=== PATIENT | male | born 1955 | race Caucasian/White ===

== ENCOUNTER 2021-01-23 06:52 | Day surgery (SDC) | payer MEDICARE, OTHER ==
[2021-01-16 12:56] LABS: PRE OP PROTIME 10.3 SECONDS (9.0-12.0)
[2021-01-16 12:57] LABS: ALKALINE PHOSPHATASE 93 IU/L (46-116); BASOPHILS # (AUTO) 0.1 X10'3 (0-0.2); BLOOD UREA NITROGEN 15 MG/DL (7-18); BUN/CREATININE RATIO 20.8 (5.4-32.0); CALCIUM 8.8 MG/DL (8.5-10.1); CHLORIDE 106 MMOL/L (99-107); CREATININE 0.72 MG/DL (0.60-1.10); EOSINOPHILS # (AUTO) 0.1 X10'3 (0-0.9); EOSINOPHILS % (AUTO) 2.1 % (0-6); LYMPHOCYTES # (AUTO) 2.5 X10'3 (1.1-4.8); LYMPHOCYTES % (AUTO) 37.1 % (21-51); MEAN CORPUSCULAR HEMOGLOBIN 29.4 PG (27.0-31.0); MEAN CORPUSCULAR HGB CONC 34.4 g/dL (33.0-36.5); MEAN CORPUSCULAR VOLUME 85.6 FL (78-98); MONOCYTES # (AUTO) 0.5 X10'3 (0-0.9); MONOCYTES % (AUTO) 6.8 % (2-12); NEUTROPHILS # (AUTO) 3.6 X10'3 (1.8-7.7); PRE OP ALT 35 U/L (30-65); PRE OP ANION GAP 8 (8-16); PRE OP AST 20 U/L (10-37); PRE OP BILIRUB, TOTAL 0.7 MG/DL (0.0-1.0); PRE OP GLUCOSE 150 MG/DL (70-104); PRE OP HEMOGLOBIN 15.8 g/dL (14.0-17.9); PRE OP PLATELET COUNT 223 X10'3 (140-440); PRE OP POTASSIUM 3.9 MMOL/L (3.4-5.1); PRE OP SODIUM 141 MMOL/L (135-145); RED BLOOD COUNT 5.38 X10'6 (4.70-6.10); TOTAL CARBON DIOXIDE 27.1 MMOL/L (24-32); TOTAL PROTEIN 7.9 G/DL (6.4-8.2); eGFR > 90 ML/MIN
[2021-01-23] VITALS (18 sets, daily range): BP systolic 119–177; BP diastolic 62–95
[~2021-01-23] VITALS: Ht 177.8 cm; Wt 100.0 kg
[~2021-01-23 06:52] MED LIST: HYDROcodone/acetaminophen 10/325mg tab PO PRN; HYDROmorphone 1 mg/ml syringe IV PRN; HYDROmorphone inj. 0.5 MG/0.5 ML DISP.SYRIN IV PRN; MULTIVITAMINS; ROPIVAcaine 0.5% (5mg/ml) 30ml vial ONE; acetaminophen 325mg tablet PO ONE; acetaminophen 325mg tablet PO PRN; bisacodyl 10mg suppository rectal RC PRN; ceFAZolin 2gm in dextrose, iso 50 ML IV ONE; celeCOXIB 100mg capsule PO ONE; cloNIDine hcl/PF 100mcg/ml inj ONE; diphenhydrAMINE 25mg capsule PO PRN; epiNEPHrine 1 mg/ml inj ONE; famotidine 20mg tablet PO ONE; gabapentin 300mg capsule PO ONE; ketorolac trometh. 30mg/ml inj. ONE; magnesium hydroxide 30ml (MOM) UD suspension PO PRN; metoclopramide 5 mg/ml inj IV ONE; ondansetron/PF 4mg/2ml inj IV PRN; oxyCODONE SR 10mg (sust. release) tab -2 tabs (20mg) PO ONE; potassium cl 20mEq in 1/2 NS 1,000 ML IV SCH; ringers solution, lacted 1,000 ML IV SCH; tranexamic acid 1gm/0.7% sal. 100 ML IV ONE; tranexamic acid inj. 0 MG in normal saline 100ml IV soln 100 ML IV ONE; vancomycin 1,000mg inj ONE; vancomycin 1,500 MG in NS 300ml IV soln IV ONE
[2021-01-23] MEDS ORDERED: fentaNYL/PF 50MCG/1 ML 2ML syringe ONE (07:06)
[2021-01-23] MEDS ORDERED: MIDAZolam 1 MG/ML 5ML VIAL ONE (07:23)
[2021-01-23] MEDS ORDERED: propofol inj 20 ML IV ONE ×2 (07:23→07:24)
[2021-01-23] MEDS ORDERED: morphine 4 MG/ML inj SYRINge IV PRN (08:00)
[2021-01-23] MEDS ORDERED: morphine 2 MG/ML inj. syringe IV PRN (08:00)
[2021-01-23] MEDS ORDERED: gabapentin 300mg capsule PO SCH (08:00)
[2021-01-23] MEDS ORDERED: labetalol 20mg/4ml (5mg/ml) syringe IV PRN (08:00)
[2021-01-23] MEDS ORDERED: multivitamins, therapeutics tablet PO SCH (08:00)
[2021-01-23] MEDS ORDERED: acetaminophen 1,000mg/100ml IV 100 ML IV PRN (08:00)
[2021-01-23] MEDS ORDERED: ringers solution, lacted 1,000 ML IV SCH (08:00)
[2021-01-23] MEDS ORDERED: ascorbic acid 500mg tablet PO SCH (08:00)
[2021-01-23] MEDS ORDERED: ondansetron/PF 4mg/2ml inj IV PRN (08:00)
[2021-01-23] MEDS ORDERED: hydrALAZINE 20mg/ml inj. IV PRN (08:00)
[2021-01-23] MEDS ORDERED: meperidine/PF 25mg/ml syringe IV PRN ×3 (08:00)
[2021-01-23] MEDS ORDERED: proCHLORperazine 10 MG/2 ml inj IV PRN (08:00)
[2021-01-23] MEDS ORDERED: ePHEDrine 50MG/ML INJ. ONE (08:24)
[2021-01-23] MEDS ORDERED: aspirin 325mg tablet PO SCH (08:30)
--- NOTE | 2021-01-23 08:35 | NUR ---
PT ARRIVED TO VIA BED ACCOMPANIED BY DR LUIS, ANESTHESIA-REPORT GIVEN, PT AWAKE, DENIES PAIN, SPINAL ANESTHESIA GIVEN-SENSATION AT T-9 CURRENTLY, + PULSES TO BLE, SCDS ON, RIGHT HIP-SUM[facility] DRSG IN PLACE-CDI, KNEE IMMOBILIZER TO RIGHT KNEE PRESENT, PIV 18G TO L A/C-LR RUNNING AT 100ML/HR
--- NOTE | 2021-01-23 09:38 | NUR ---
PT DOING WELL, VSS, DENIES PAIN, + PULSES TO BLE, SENSATION NOTED TO BE AT L3 CURRENTLY, DRSG-CDI
--- NOTE | 2021-01-23 11:30 | NUR ---
PT HERE TO EDUCATE REGARDING HOME CARE, PT'S SENSATION HAS RETURNED AND PT IS ABLE TO MOVE FEET, DENIES PAIN VSS.
[2021-01-23] MEDS ORDERED: HYDROcodone/acetaminophen 10/325mg tab PO ONE (11:40)
--- NOTE | 2021-01-23 12:05 | NUR ---
PT DRESSED AND TOLERATED PT WELL, VSS, DID HAVE SOME PAIN-DEMEROL GIVEN EARLIER ALONG WITH A NORCO TO HELP WITH THE RIDE HOME-PAIN DECREASING 5-6/10, EDUCATED TO STAY ON TOP OF PAIN-PT AWARE BUT WANTS TO AVOID PAIN MEDS IF POSSIBLE. EDUCATED REGARDING HOME CARE OF SUMI DRSG-MAY SHOWER AND KEEP IN PLACE FOR 7 DAYS, PT HAS HOME CARE INSTRUCTIONS FROM [facility] ALREADY, GIVEN P.T. HANDOUTS WELL-ALL QUESTIONS ANSWERED. PIV D/CD-CANNULA INTACT, HIP DRSG-CDI, +PULSES BLE, SENSATION FULLY RTN, TAKEN HOME VIA DEANNE CARGO IN W/C WITH ALL BELONGINGS
[2021-01-23] MEDS ORDERED: cefazolin/dext.iso 2gm/100ml 100 ML IV SCH (16:00)
[2021-01-23] MEDS ORDERED: VANCOMYCIN 1,500MG inj. 1,500 MG in normal saline 500ml IV soln 500 ML IV SCH (20:00)
[2021-01-23] MEDS ORDERED: sennosides 8.6mg tablet PO SCH (21:00)
[2021-01-24] MEDS ORDERED: celeCOXIB 100mg capsule PO SCH (20:00)
== END 2021-01-23 12:05 | disposition home or self-care (01) ==
LOC: PAS 06:52
PROVIDERS: ATTEND Orthopaedic Surgery
DX: M16.11 Unilateral primary osteoarthritis, right hip (principal); E66.9 Obesity, unspecified; Z68.31 Body mass index [BMI] 31.0-31.9, adult; Z79.899 Other long term (current) drug therapy; Z79.01 Long term (current) use of anticoagulants; Z20.822 Contact with and (suspected) exposure to COVID-19; Z72.89 Other problems related to lifestyle; Z98.890 Other specified postprocedural states; Z85.46 Personal history of malignant neoplasm of prostate
CPT/HCPCS: 27130; 36415; 72170; 80053; 82948; 85025; 85610; 85730; 86885; 86900; 86901; 87081; 97110; 97116; 97161; C1776; J0171; J0735; J1885; J2175; J2250; J2704; J2765; J3010; J3370; J7040; J7120; U0003; U0005; Z7506; Z7508; Z7512; A7000; J2795

== ENCOUNTER 2021-03-20 07:08 | Day surgery (SDC) | payer MEDICARE, OTHER ==
[2021-03-12 10:26] LABS: BASOPHILS # (AUTO) 0.1 X10'3 (0-0.2); BASOPHILS % (AUTO) 0.9 % (0-1); EOSINOPHILS # (AUTO) 0.2 X10'3 (0-0.9); EOSINOPHILS % (AUTO) 2.1 % (0-6); LYMPHOCYTES # (AUTO) 2.6 X10'3 (1.1-4.8); LYMPHOCYTES % (AUTO) 34.7 % (21-51); MEAN CORPUSCULAR HEMOGLOBIN 29.2 PG (27.0-31.0); MEAN CORPUSCULAR HGB CONC 34.5 g/dL (33.0-36.5); MEAN CORPUSCULAR VOLUME 84.5 FL (78-98); MEAN PLATELET VOLUME 8.3 FL (7.4-10.4); MONOCYTES # (AUTO) 0.5 X10'3 (0-0.9); MONOCYTES % (AUTO) 6.2 % (2-12); NEUTROPHILS # (AUTO) 4.1 X10'3 (1.8-7.7); NEUTROPHILS % (AUTO) 56.1 % (42-75); PRE OP HEMATOCRIT 45.9 % (42.0-52.0); PRE OP HEMOGLOBIN 15.8 g/dL (14.0-17.9); PRE OP PLATELET COUNT 263 X10'3 (140-440); RED BLOOD COUNT 5.43 X10'6 (4.70-6.10); RED CELL DISTRIBUTION WIDTH 13.1 % (11.5-14.5)
[2021-03-12 10:46] LABS: ALBUMIN 4.1 G/DL (3.4-5.0); ALKALINE PHOSPHATASE 110 IU/L (46-116); BLOOD UREA NITROGEN 14 MG/DL (7-18); BUN/CREATININE RATIO 18.2 (5.4-32.0); CALCIUM 9.3 MG/DL (8.5-10.1); CHLORIDE 101 MMOL/L (99-107); CREATININE 0.77 MG/DL (0.60-1.10); PRE OP ALT 33 U/L (30-65); PRE OP ANION GAP 9 (8-16); PRE OP AST 28 U/L (10-37); PRE OP BILIRUB, TOTAL 0.6 MG/DL (0.0-1.0); PRE OP GLUCOSE 156 MG/DL (70-104); PRE OP POTASSIUM 4.2 MMOL/L (3.4-5.1); PRE OP SODIUM 140 MMOL/L (135-145); TOTAL CARBON DIOXIDE 30.4 MMOL/L (24-32); TOTAL PROTEIN 8.1 G/DL (6.4-8.2); eGFR > 90 ML/MIN
[2021-03-20] VITALS (25 sets, daily range): BP systolic 120–175; BP diastolic 64–94
[~2021-03-20] VITALS: Ht 177.8 cm; Wt 99.8 kg
[2021-03-20] MEDS: potassium cl 20mEq in 1/2 NS 1,000 ML IV SCH ×4 (06:50→22:50)
[~2021-03-20 07:08] MED LIST changes: +MULT-1249 PO; -MULTIVITAMINS; -ROPIVAcaine 0.5% (5mg/ml) 30ml vial ONE; -acetaminophen 325mg tablet PO PRN; -ceFAZolin 2gm in dextrose, iso 50 ML IV ONE; +cefazolin/dext.iso 2gm/50ml IV ONE; -cloNIDine hcl/PF 100mcg/ml inj ONE; -epiNEPHrine 1 mg/ml inj ONE; -ketorolac trometh. 30mg/ml inj. ONE; -potassium cl 20mEq in 1/2 NS 1,000 ML IV SCH; -ringers solution, lacted 1,000 ML IV SCH; -tranexamic acid 1gm/0.7% sal. 100 ML IV ONE; -tranexamic acid inj. 0 MG in normal saline 100ml IV soln 100 ML IV ONE; -vancomycin 1,000mg inj ONE
[2021-03-20] MEDS ORDERED: celeCOXIB 100mg capsule PO ONE (07:55)
[2021-03-20] MEDS: ringers solution, lacted 1,000 ML IV SCH ×2 (07:59→14:38)
[2021-03-20] MEDS ORDERED: morphine 2 MG/ML inj. syringe IV PRN (08:10)
[2021-03-20] MEDS ORDERED: fentaNYL/PF 50MCG/1 ML 2ML syringe IV PRN ×2 (08:10)
[2021-03-20] MEDS ORDERED: hydrALAZINE 20mg/ml inj. IV PRN (08:10)
[2021-03-20] MEDS ORDERED: ondansetron/PF 4mg/2ml inj IV PRN (08:10)
[2021-03-20] MEDS ORDERED: ringers solution, lacted 1,000 ML IV SCH (08:10)
[2021-03-20] MEDS ORDERED: labetalol 20mg/4ml (5mg/ml) syringe IV PRN (08:10)
[2021-03-20] MEDS ORDERED: morphine 4 MG/ML inj SYRINge IV PRN (08:10)
[2021-03-20] MEDS ORDERED: ketorolac trometh. 30mg/ml inj. ONE ×2 (09:11→10:24)
[2021-03-20] MEDS ORDERED: ROPIVAcaine 0.5% (5mg/ml) 30ml vial ONE ×2 (09:12→10:24)
[2021-03-20] MEDS ORDERED: vancomycin 1,000mg inj ONE (09:12)
[2021-03-20] MEDS ORDERED: cloNIDine hcl/PF 100mcg/ml inj ONE ×2 (09:12→10:24)
[2021-03-20] MEDS ORDERED: epiNEPHrine 1 mg/ml inj ONE ×2 (09:12→10:24)
[2021-03-20] MEDS ORDERED: fentaNYL/PF 50MCG/1 ML 2ML syringe ONE (09:40)
[2021-03-20] MEDS ORDERED: MIDAZolam 1mg/ml 10ml vial ONE (09:40)
[2021-03-20] MEDS ORDERED: ePHEDrine 50MG/ML INJ. ONE (10:21)
[2021-03-20] MEDS ORDERED: tranexamic acid inj. 1,000 MG in 0.7% saline 100 ML PMX IV ONE (10:55)
--- NOTE | 2021-03-20 11:04 | NUR ---
Received from OR via BED IN STABLE CONDTION , accompanied by Anesthesiologist and CORE DRILLER report given by CORE DRILLER AND Anesthesiolgist. Addendum: 03/20/21 at 1229 by Brenda José RN Amended: Links added.
--- NOTE | 2021-03-20 11:05 | NUR ---
NOTE FOR 1140 INCORRECT TIME. DERMATOME LEVEL L1 AT 1105 Addendum: 03/20/21 at 1257 by Brenda José RN Amended: Links added.
--- NOTE | 2021-03-20 11:30 | NUR ---
DERMATOME LEVEL L1 Addendum: 03/20/21 at 1258 by Brenda José RN Amended: Links added.
--- NOTE | 2021-03-20 11:40 | NUR ---
DERMATOME LEVEL L1. Addendum: 03/20/21 at 1253 by Brenda José RN Amended: Links added.
--- NOTE | 2021-03-20 12:00 | NUR ---
DERMATOME LEVEL L2 Addendum: 03/20/21 at 1258 by Brenda José RN Amended: Links added.
--- NOTE | 2021-03-20 12:30 | NUR ---
DERMATOME LEVEL L3 PATIENT ABLE TO WIGGLE FEET. Addendum: 03/20/21 at 1300 by Brenda José RN Amended: Links added.
--- NOTE | 2021-03-20 13:00 | NUR ---
DERMATOME LEVEL S2 Addendum: 03/20/21 at 1301 by Brenda José RN Amended: Links added.
--- NOTE | 2021-03-20 13:54 | NUR ---
PATIENT DISCHARGED FROM PACU IN STABLE CONDITION AFTER REPORT GIVEN TO RN TAKING OVER PATIENTS CARE. PATIENT TRANSFERRED TO ROOM VIA BED WITH RN AND KELLY. Addendum: 03/20/21 at 1415 by Brenda José RN Amended: Links added.
[2021-03-20] MEDS ORDERED: tranexamic acid 1gm/0.7% sal. 100 ML IV ONE (14:00)
[2021-03-20] MEDS: gabapentin 300mg capsule PO SCH ×2 (16:00→20:16)
[2021-03-20] MEDS: cefazolin/dext.iso 2gm/50ml 50 ML IV SCH (16:16)
[2021-03-20] MEDS: multivitamins, therapeutics tablet PO SCH (16:16)
[2021-03-20] MEDS: aspirin 325mg tablet PO SCH (16:16)
[2021-03-20] MEDS: acetaminophen 325mg tablet PO PRN (19:50)
[2021-03-20] MEDS: ascorbic acid 500mg tablet PO SCH (20:15)
[2021-03-20] MEDS ORDERED: sennosides 8.6mg tablet PO SCH (21:00)
[2021-03-21] VITALS: BP 127/65
[2021-03-21] MEDS: cefazolin/dext.iso 2gm/50ml 50 ML IV SCH (00:45)
[2021-03-21] MEDS: acetaminophen 325mg tablet PO PRN (02:24)
[2021-03-21 04:00] VITALS: BP 150/77
--- NOTE | 2021-03-21 05:10 | NUR ---
Pt pre-mediacted in readiness for PT this AM.
[2021-03-21] MEDS: potassium cl 20mEq in 1/2 NS 1,000 ML IV SCH (05:12)
--- NOTE | 2021-03-21 06:30 | NUR ---
Patient in room [id number]. I have received report from AREN Coy and had the opportunity to ask questions and assume patient care.
--- NOTE | 2021-03-21 06:33 | NUR ---
Report given to Elisha HUGO
[2021-03-21 06:42] LABS: BASOPHILS % (AUTO) 0.3 % (0-1); EOSINOPHILS # (AUTO) 0.1 X10'3 (0-0.9); EOSINOPHILS % (AUTO) 0.8 % (0-6); HEMATOCRIT 36.4 % (42.0-52.0); HEMOGLOBIN 12.7 g/dl (14.0-17.9); LYMPHOCYTES # (AUTO) 2.4 X10'3 (1.1-4.8); LYMPHOCYTES % (AUTO) 25.6 % (21-51); MEAN CORPUSCULAR HEMOGLOBIN 29.4 PG (27.0-31.0); MEAN CORPUSCULAR HGB CONC 34.9 g/dL (33.0-36.5); MEAN CORPUSCULAR VOLUME 84.2 FL (78-98); MEAN PLATELET VOLUME 8.6 FL (7.4-10.4); MONOCYTES # (AUTO) 0.9 X10'3 (0-0.9); MONOCYTES % (AUTO) 9.3 % (2-12); NEUTROPHILS # (AUTO) 6.1 X10'3 (1.8-7.7); PLATELET COUNT 201 X10'3 (140-440); RED BLOOD COUNT 4.33 X10'6 (4.70-6.10); RED CELL DISTRIBUTION WIDTH 12.9 % (11.5-14.5); WHITE BLOOD COUNT 9.6 X10'3 (4.5-11.0)
[2021-03-21 06:51] LABS: ANION GAP 9 (8-16); CHLORIDE 103 MMOL/L (99-107); POTASSIUM 4.2 MMOL/L (3.5-5.1); SODIUM 140 MMOL/L (135-145); TOTAL CARBON DIOXIDE 27.8 MMOL/L (24-32)
[2021-03-21 07:00] VITALS: BP 164/78
[2021-03-21] MEDS: multivitamins, therapeutics tablet PO SCH (07:37)
[2021-03-21] MEDS: aspirin 325mg tablet PO SCH (07:37)
[2021-03-21] MEDS: ascorbic acid 500mg tablet PO SCH (07:37)
[2021-03-21] MEDS: gabapentin 300mg capsule PO SCH (07:38)
[2021-03-21] MEDS ORDERED: celeCOXIB 100mg capsule PO SCH (20:00)
== END 2021-03-21 09:22 | disposition home or self-care (01) ==
LOC: PAS 07:08 → SUR 3N 07:09 → EDSTATUS 11:30 → PAS 03-21 09:22
PROVIDERS: ATTEND Orthopaedic Surgery
DX: M16.12 Unilateral primary osteoarthritis, left hip (principal); E66.9 Obesity, unspecified; Z68.33 Body mass index [BMI] 33.0-33.9, adult; Z20.822 Contact with and (suspected) exposure to COVID-19; Z79.82 Long term (current) use of aspirin; Z79.899 Other long term (current) drug therapy; Z88.5 Allergy status to narcotic agent; Z98.890 Other specified postprocedural states; Z98.52 Vasectomy status; Z87.891 Personal history of nicotine dependence; Z72.89 Other problems related to lifestyle; Z96.641 Presence of right artificial hip joint; Z85.46 Personal history of malignant neoplasm of prostate
CPT/HCPCS: 27130; 36415; 72170; 80051; 80053; 82948; 85025; 86885; 86900; 86901; 87081; 97110; 97161; 97530; C1776; J0171; J0690; J0735; J1885; J2250; J2405; J2765; J2795; J3010; J3370; J3480; J3490; J7030; J7040; J7120; U0003; U0005; Z7506; Z7508; Z7512; A4215; A7000; G0378